=== PATIENT | male | born 1975 | race Caucasian/White ===

== ENCOUNTER → 2017-11-28 | Outpatient (REF) | payer OTHER | LOC: M SFHCPLAZ 12:57 | DX: S92.042 Displaced other fracture of tuberosity of left calcaneus (principal); X58.XXXD Exposure to other specified factors, subsequent encounter ==

== ENCOUNTER → 2018-06-09 | Outpatient (CLI) | payer OTHER ==
--- NOTE | 2018-06-10 06:16 | REP ---
Clinical: History of calcaneal fracture and prior fixation. Technique: Noncontrast axial images through the ankle with coronal and sagittal re-formations. Comparison: None. Findings: A multipartite fracture involving the calcaneus is appreciated with three compression screws holding the largest fracture components in stable position. Smaller adjacent fracture fragments are identified. Fracture lines demonstrate fibrous pseudo-articulations without obvious periosteal reaction or bone effusion/regrowth. There is associated displacement at the talocalcaneal joint. The majority of the osseous structures through the visualized ankle and proximal/mid foot demonstrate heterogeneous mottling consistent with disuse osteodystrophy. Soft tissues demonstrate diffuse chronic/post traumatic infiltration. Impression: Changes related to prior trauma as described above. Electronically Signed by Harley Morales MD 06/10/2018 06:07 A
== END ==
LOC: M RAD 10:25
PROVIDERS: ATTEND Physician Assistant
DX: S92.012D Displaced fracture of body of left calcaneus, subsequent encounter for fracture with routine healing (principal)

== ENCOUNTER → 2018-07-17 | Outpatient (REF) | payer OTHER ==
[2018-07-17 11:38] LABS: CHOLESTEROL RISK RATIO 4.111 (<5)
== END ==
LOC: M SFHCPLAZ 08:38
PROVIDERS: ATTEND Family Medicine
DX: Z13.220 Encounter for screening for lipoid disorders (principal); Z13.1 Encounter for screening for diabetes mellitus

== ENCOUNTER 2018-11-23 07:00 | Day surgery (SDC) | payer OTHER ==
[~2018-11-23] VITALS: Ht 170.2 cm; Wt 65.8 kg
[~2018-11-23 07:00] MED LIST: GABA-1171 PO; IBUP-1022 PO; LIDOCAINE 1% MDV 20ML VIAL SQ PRN; OXYC1TAB23 PO; PERC7.5T11 PO
[2018-11-23] MEDS: LR 1,000 ML IV ONE (08:07)
[2018-11-23] MEDS ORDERED: ceFAZolin 1GM INJ (J0690 PER 500MG) As Ordered ONE (08:25)
[2018-11-23] MEDS ORDERED: LIDOCAINE 1% MDV 20ML VIAL As Ordered ONE (09:00)
[2018-11-23] MEDS ORDERED: LIDOCAINE 2% INJ 100 MG/5 ML SDV (FOR ANES.) As Ordered ONE (09:01)
[2018-11-23] MEDS ORDERED: MIDAZOLAM INJ 2 MG/2 ML VIAL (J2250) As Ordered ONE (09:01)
[2018-11-23] MEDS ORDERED: PROPOFOL 200 MG/20 ML VIAL As Ordered ONE (09:01)
[2018-11-23] MEDS ORDERED: dexameTHASONE 4 MG/ML 1ML VIAL (J1100) As Ordered ONE (09:01)
[2018-11-23] MEDS ORDERED: fentaNYL 100 MCG/2 ML INJECTION (J3010) As Ordered ONE (09:01)
[2018-11-23] MEDS ORDERED: ePHEDrine SULFATE 25 MG/5 ML(5MG/ML) SYRINGE As Ordered ONE (09:14)
[2018-11-23] MEDS ORDERED: ONDANSETRON 4MG/2ML VIAL (J2405) As Ordered ONE (09:22)
[2018-11-23] MEDS ORDERED: KETOROLAC 60 MG/2 ML VIAL (J1885) As Ordered ONE (09:32)
[2018-11-23] MEDS ORDERED: HYDROMORPHONE HCL 0.5 MG/ 0.5 ML SYRINGE (J1170 PER 1) IV PRN (10:15)
[2018-11-23] MEDS ORDERED: ONDANSETRON 4MG/2ML VIAL (J2405) IV PRN (10:15)
[2018-11-23] MEDS ORDERED: LR 1,000 ML IV SCH ×2 (10:15)
[2018-11-23] MEDS ORDERED: PERCOCET 5MG/325MG TAB PO PRN ×2 (10:15)
[2018-11-23] MEDS ORDERED: fentaNYL 100 MCG/2 ML INJECTION (J3010) IV PRN (10:15)
[2018-11-23 10:50] VITALS: BP 126/77
[2018-11-23] MEDS: PERCOCET 5MG/325MG TAB PO PRN (11:26)
--- NOTE | 2018-11-23 11:27 | REP ---
C-ARM VIEWS CALCANEUS: Three C-arm views of the calcaneus are performed. Fracture deformity is noted of the calcaneus. 18 seconds fluoroscopy time utilized. Electronically Signed by Caleb Montes MD 11/24/2018 11:55 A
--- NOTE | 2018-11-23 12:54 | RO ---
DATE OF PROCEDURE: 11/23/2018 PREOPERATIVE DIAGNOSIS: Left foot painful hardware. POSTOPERATIVE DIAGNOSIS: Left foot painful hardware. PROCEDURE: Removal of hardware left foot. SURGEON: Emelyn Swenson MD SHINGLE SHEARING MACHINE OPERATOR: Tosin Colvin PA-C ANESTHESIA: Laryngeal mask airway (LMA). ESTIMATED BLOOD LOSS: 5 mL. SPECIMENS SENT: Screws times three. COMPLICATIONS: None. CONDITION: Stable to recovery. INDICATIONS: Mike Blankenship is a 42-year-old gentleman who sustained a severe injury to his calcaneus back in [place] over one year ago. This was surgically repaired there. He has had prominence of the screws and significant pain in his left foot from a severe deformity. He wishes to proceed with hardware removal with plans for a subtalar fusion later in the future. The risks and benefits of surgery were discussed with the patient in detail and include, but are not limited too, infection, damage to nerves and blood vessels, continued pain and stiffness, need for additional procedure. Informed consent was obtained in the office. PROCEDURE: Patient was met in the preoperative holding area where the left lower extremity was marked as the correct operative site. He was taken to the operating room, placed in the supine position on the operating room table. Bony prominences were well padded. A bump was placed under the left hip. A well padded tourniquet was applied to the left thigh. The patient had undergone anesthesia without any difficulty. The left lower extremity was then prepped and draped in the normal sterile fashion. Chlorhexidine scrub had been performed prior to this. An official time out was held with the correct patient, operative side and operative procedure all verified. At this point, an esmarch was used to exsanguinate the leg and tourniquet was inflated to 250 mmHg. The tourniquet was up for 33 minutes. Using fluoroscopy on lateral view, the most distal screw was easily identified. This was fairly prominent through the patient's skin. A small incision was made over the screw using the patient's prior scar. A wire from the 4.5 cannulated screw kit was placed into the screw. The screw was then easily removed with the appropriate screwdriver. Following this, an incision was made proximally to this, again in the region of the patient's prior scar. The remaining two screws were identified using fluoroscopy. A wire was placed in both of these screws, and again each screw was easily removed. The screws were sent for culture to rule out any infection. Both of these small incisions were copiously irrigated. #3-0 Vicryl was used to close subcutaneous tissue and #3-0 nylon was used to close the skin. A well padded dressing was applied. Final fluoroscopic images demonstrated removal of hardware. There was no shift in the calcaneus bone itself following removal of the screws. The patient was extubated and transferred to the recovery room in stable condition. PLAN: The patient will be partial weightbearing in a short boot. I would like him to use crutches until his sutures are out as one of these incisions is really right on the base of his heel and would be prone for an infection. After his wounds are healed he can progress to weightbearing as tolerated. I will see him back in the office so we can discuss further plans for his foot.
== END 2018-11-23 13:14 | disposition home or self-care (01) ==
LOC: M SDC 07:00
PROVIDERS: ATTEND Orthopaedic Surgery
DX: T84.84XA Pain due to internal orthopedic prosthetic devices, implants and grafts, initial encounter (principal); X58.XXXA Exposure to other specified factors, initial encounter; Y93.9 Activity, unspecified; Y92.9 Unspecified place or not applicable; Y99.9 Unspecified external cause status; Z79.899 Other long term (current) drug therapy; Z86.718 Personal history of other venous thrombosis and embolism; Z72.0 Tobacco use; Z87.81 Personal history of (healed) traumatic fracture
CPT/HCPCS: 20680; 76000; 87070; 87075; 87205; 97116; 97530; J0690; J1100; J1885; J2250; J2405; J3010

== ENCOUNTER → 2021-01-16 | Outpatient (CLI) | payer OTHER ==
[~2021-01-16] MED LIST changes: -LIDOCAINE 1% MDV 20ML VIAL SQ PRN
== END ==
LOC: M PLALAB 14:08
PROVIDERS: ATTEND Student in an Organized Health Care Education/Training Program
DX: G89.29 Other chronic pain (principal)

== ENCOUNTER → 2022-10-15 | Outpatient (REF) | payer OTHER | LOC: M SFHCPLAZ 15:28 | PROVIDERS: ATTEND Family Medicine | DX: Z53.9 Procedure and treatment not carried out, unspecified reason (principal) ==

== ENCOUNTER → 2022-11-13 | Day surgery (SDC) | payer OTHER ==
[~2022-11-13] VITALS: Ht 172.7 cm; Wt 72.6 kg
[~2022-11-13] MED LIST changes: +ACET-683 PO; +GABA600T4 PO; +NS 1,000 ML IV ONE; +TIZA10TA PO; +VITA100093 PO
== END | disposition home or self-care (01) ==
LOC: M OPP 07:53
PROVIDERS: ATTEND Surgery
DX: Z12.11 Encounter for screening for malignant neoplasm of colon (principal); Z53.8 Procedure and treatment not carried out for other reasons

== ENCOUNTER → 2023-02-26 | Outpatient (REF) | payer OTHER ==
[~2023-02-26] MED LIST changes: -NS 1,000 ML IV ONE
[2023-02-26 18:51] LABS: BASO % 0.4 % (0.0-1.0); EOS # 0.4 10^3/uL (0.0-0.5); EOS % 4.3 % (0.0-3.0); HEMATOCRIT 41.8 % (42.0-52.0); HEMOGLOBIN 13.7 g/dl (13.5-17.5); LYMPH # 2.3 10^3/uL (1.5-5.0); LYMPH % 24.5 % (24.0-44.0); MEAN CORPUSCULAR HEMOGLOBIN 28.4 pg (27.0-33.0); MEAN CORPUSCULAR HGB CONC 32.8 g/dl (32.0-36.5); MEAN CORPUSCULAR VOLUME 86.5 fl (80.0-96.0); MONO # 0.6 10^3/uL (0.0-0.8); MONO % 6.9 % (2.0-8.0); NEUTROPHILS # 5.8 10^3/uL (1.5-8.5); NEUTROPHILS % 63.6 % (36.0-66.0); PLATELET COUNT, AUTOMATED 299 10^3/uL (150-450); RED BLOOD COUNT 4.83 10^6/uL (4.30-6.10); WHITE BLOOD COUNT 9.2 10^3/uL (4.0-10.0)
[2023-02-26 19:05] LABS: ALBUMIN 4.1 G/DL (3.2-5.2); ALKALINE PHOSPHATASE 100 U/L (46-116); ALT/SGPT 13 U/L (7.0-40); AST/SGOT < 8 U/L (<34); BILIRUBIN,TOTAL 0.2 MG/DL (0.3-1.2); BLOOD UREA NITROGEN 10 MG/DL (9-23); CALCIUM LEVEL 9.5 MG/DL (8.5-10.1); CARBON DIOXIDE LEVEL 29 MMOL/L (20-31); CHLORIDE LEVEL 105 MMOL/L (98-107); CHOLESTEROL LEVEL 151 MG/DL (<200); CHOLESTEROL RISK RATIO 3.07 (<5); CREATININE FOR GFR 0.84 MG/DL (0.70-1.30); GLOMERULAR FILTRATION RATE > 60.0 (>60); GLUCOSE, FASTING 107 MG/DL (60-100); HDL CHOLESTEROL 49.1 MG/DL (>40); LDL CHOLESTEROL 81.3 MG/DL (<100); NON-HDL-C 101.9 MG/DL; POTASSIUM SERUM 4.3 MMOL/L (3.5-5.1); SODIUM LEVEL 141 MMOL/L (136-145); TOTAL PROTEIN 7.2 G/DL (5.7-8.2); TRIGLYCERIDES LEVEL 103 MG/DL (<150)
== END ==
LOC: M SFHCPLAZ 17:16
PROVIDERS: ATTEND Student in an Organized Health Care Education/Training Program
DX: Z51.81 Encounter for therapeutic drug level monitoring (principal); G89.29 Other chronic pain